=== PATIENT | female | born 1970 | race Caucasian/White ===

== ENCOUNTER 2016-07-26 13:01 | Emergency (ER) | payer OTHER ==
[2016-07-26 13:06] VITALS: BP 102/79; BMI 24.7
--- NOTE | 2016-07-26 13:37 | DR.GENAD ---
HPI - PCP Primary Care Physician: kristina - Complaint/Symptoms Chief Complaint:: patient has had diverticulits in the past, and she is hurting like this again. she also has addisons dx and she dont want to go into crisis. - Source History Provided: Patient - Mode of Arrival Mode of Arrival: Ambulatory - Timing Onset of Chief Complaint: 07/26/16 PMH - PMH Past Medical History: Yes Past Medical History: Anemia, Depression, PUD, Renal Disease Past Surgical History: Yes Surgical History: Hysterectomy, Tonsillectomy - Family History History of Family Medical Conditions: Yes Family Medical History: Hypertension - Social History Does patient currently use any type of tobacco product: Yes Have you used tobacco products in the last 12 months: Yes Type of Tobacco Use: Cigarettes How many years tobacco product used: 7 Does any household member use tobacco: No Alcohol Use: None Do you use any recreational Drugs:: No Lives With: Family Lives Where: Home - infectious screening In the last 2 months have you had wt loss of >10#?: NO Have you had fever, night sweats or hemotysis?: No Have you traveled outside the country in the last 6 months?: No Isolation: Standard ROS - Review of Systems Constitutional: No Symptoms Reported Eyes: No Symptoms Reported ENTM: No Symptoms Reported Respiratoy: No Symptoms Reported Cardiovascular: No Symptoms Reported Gastrointestinal/Abdominal: Abdominal Pain Genitourinary: No Symptoms Reported Neurological: No Symptoms Reported Musculoskeletal: No Symptoms Reported Integumentary: No Symptoms Reported Hematologic/Lymphatic: No Symptoms Reported Endocrine: No Symptoms Reported Psychiatric: No Symptoms Reported All Other Systems: Reviewed and Negative PE - Vital Signs Vitals: Temperature 98.3 F Pulse Rate 100 Respiratory Rate 16 Blood Pressure [Right Arm] 108/59 Blood Pressure [Left Arm] 110/56 Blood Pressure 102/79 O2 Sat by Pulse Oximetry 100 - General General Appearance: Alert - Head Head Exam: Normal Inspection - Eyes Eye exam: Normal Appearance, PERRL, EOMI - ENT ENT Exam: Normal Exam External Ear Exam: Normal External Inspection TM/Canal Exam: Bilateral Normal Nose Exam: Normal Nose Exam Throat Exam: Normal Inspection - Neck Neck Exam: Normal Inspection - Chest Chest Inspection: Normal Inspection - Respiratory Respiratory Exam: Normal Lung Sounds Bilat Respiratory Exam: Bilateral Clear to Auscultation - Cardiovascular Cardiovascular Exam: Regular Rate, Normal Rhythm - Abdominal Exam Abdominal Exam: Normal Inspection, Normal Bowel Sounds, Tenderness Abdominal Tenderness: Epigastrium, Diffuse - Extremities Extremities Exam: Normal Inspection, Full ROM - Back Back Exam: Normal Inspection - Neurologic Neurological Exam: Alert, Oriented X3, CN II-XII Intact - Skin Skin Exam: Warm. negative: Dry Course - Reevaluation 1st: Improved ROR - Labs Reviewed Result Diagrams: 07/26/16 13:31 07/26/16 13:31 Laboratory: WBC 14.8 X10^3/uL (3.6-10.0) H 07/26/16 13:31 RBC 5.23 X10^6/uL (3.5-5.4) 07/26/16 13:31 Hgb 15.7 g/dL (12.0-16.0) 07/26/16 13:31 Hct 46.0 % (36.0-47.0) 07/26/16 13:31 MCV 87.8 fL (80.0-100.0) 07/26/16 13:31 MCH 30.0 pg (27.0-34.0) 07/26/16 13:31 MCHC 34.2 g/dL (33.0-35.0) 07/26/16 13:31 RDW 13.7 % (11.6-16.5) 07/26/16 13:31 Plt Count 236 X10^3/uL (150.0-450.0) 07/26/16 13:31 MPV 9.7 fL (7.4-11.0) 07/26/16 13:31 Neut % 72.8 % (42.0-75.0) 07/26/16 13:31 Lymph % 20.9 % (21.0-51.0) L 07/26/16 13:31 Pepin % 3.8 % (0.0-13.0) 07/26/16 13:31 Eos % 1.7 % (0.9-2.9) 07/26/16 13:31 Baso % 0.8 % (0.2-1.0) 07/26/16 13:31 Neut # 10.8 x10^3/uL (2.2-4.8) H 07/26/16 13:31 Lymph # 3.1 X10^3/uL (1.3-2.9) H 07/26/16 13:31 Pepin # 0.6 x10^3/uL (0.3-0.8) 07/26/16 13:31 Eos # 0.2 x10^3/uL (0.0-0.2) 07/26/16 13:31 Baso # 0.1 X10^3/uL (0.0-0.1) 07/26/16 13:31 Absolute Nucleated RBC 0.0 /100WBC 07/26/16 13:31 Sodium 138 mmol/L (136-145) 07/26/16 13:31 Corrected Sodium TNP 07/26/16 13:31 Potassium 3.9 mmol/L (3.5-5.1) 07/26/16 13:31 Chloride 102 mmol/L (98-107) 07/26/16 13:31 Carbon Dioxide 27.9 mmol/L (21-32) 07/26/16 13:31 BUN 5 mg/dL (7-18) L 07/26/16 13:31 Creatinine 0.85 mg/dL (0.55-1.02) 07/26/16 13:31 Est GFR (MDRD) Af Amer > 60 (>60) 07/26/16 13:31 Est GFR (MDRD) Non-Af > 60 (>60) 07/26/16 13:31 Glucose 101 mg/dL (65-99) H 07/26/16 13:31 Calcium 8.7 mg/dL (8.5-10.1) 07/26/16 13:31 Corrected Calcium TNP 07/26/16 13:31 Total Bilirubin 0.30 mg/dL (0.2-1.0) 07/26/16 13:31 AST 19 Units/L (15-37) 07/26/16 13:31 ALT 26 Units/L (12-78) 07/26/16 13:31 Alkaline Phosphatase 110 Units/L (46-116) 07/26/16 13:31 C-Reactive Protein 8.60 mg/L (0-3.0) H 07/26/16 13:31 Total Protein 8.1 g/dL (6.4-8.2) 07/26/16 13:31 Albumin 3.5 g/dL (3.4-5.0) 07/26/16 13:31 Globulin 4.6 g/dL (2.5-4.5) H 07/26/16 13:31 Albumin/Globulin Ratio 0.8 Ratio (1.1-2.1) L 07/26/16 13:31 Amylase 32 Units/L (25-115) 07/26/16 13:31 Lipase 99 Units/L (73-393) 07/26/16 13:31 Specimen Type Clean catch urine 07/26/16 14:29 Urine Color Yellow (YELLOW) 07/26/16 14:29 Urine Appearance Clear (CLEAR) 07/26/16 14:29 Urine pH 7.0 (5.0 - 8.0) 07/26/16 14:29 Ur Specific [place] 1.010 (1.000-1.030) 07/26/16 14: Urine Protein Negative (NEGATIVE) 07/26/16 14:29 Urine Glucose (UA) Negative (NEGATIVE) 07/26/16 14:29 Urine Ketones Negative (NEGATIVE) 07/26/16 14:29 Urine Occult Blood 2+ (NEGATIVE) 07/26/16 14:29 Urine Nitrite Negative (NEGATIVE) 07/26/16 14:29 Urine Bilirubin Negative (NEGATIVE) 07/26/16 14:29 Urine Urobilinogen Normal (NORMAL) 07/26/16 14:29 Ur Leukocyte Esterase Negative (NEGATIVE) 07/26/16 14:29 Urine RBC 3-4 /HPF (NEGATIVE) 07/26/16 14:29 Urine WBC 0-1 /HPF (NEGATIVE) 07/26/16 14:29 Ur Squamous Epith Cells Moderate /HPF (NEGATIVE) 07/26/16 14:29 Amorphous Sediment Trace /HPF (NEGATIVE) 07/26/16 14:29 Urine Bacteria Trace /HPF (NEGATIVE) 07/26/16 14:29 Ur Culture Indicated? No/not indicated 07/26/16 14:29 - XRAY XRAY Interpreted by: Radiologist (Findings...The gallbladder is unremarkable in its CT apearance. No significant mesenteric lymphadenopathy or stranding can be observed. No free fluid or free air is seen within the abdomen. The appendix is normal. No bowel wall thickening or bowel dilatation is present. Tehere is sigmoid and idstal left colonic diverticular disease without definite inflammation demonstrated on todsy's examination. The uterus appears to be absent. The urinary bladder is empty. The bony structures are grossly intact. Impression: Sigmoid Diverticulosis) - Diagnosis Discharge Problem: Sigmoid diverticulosis - Discharge Plan Condition: Stable - Follow ups/Referrals Follow ups/Referrals: Mann Cedeño [Primary Care Provider] - 3 days - Instructions
[2016-07-26] MEDS ORDERED: NS 1000 ML 1,000 ML ONE (13:38)
[2016-07-26] MEDS ORDERED: MORPHINE SULFATE INJ 4 MG IVP ONE (13:41)
[2016-07-26 13:48] LABS: ALANINE AMINOTRANSFERASE 26 Units/L (12-78); ALBUMIN 3.5 g/dL (3.4-5.0); ALKALINE PHOSPHATASE 110 Units/L (46-116); AMYLASE 32 Units/L (25-115); ASPARTATE AMINO TRANSFERASE 19 Units/L (15-37); BLOOD UREA NITROGEN 5 mg/dL (7-18); CALCIUM 8.7 mg/dL (8.5-10.1); CARBON DIOXIDE 27.9 mmol/L (21-32); CHLORIDE 102 mmol/L (98-107); CREATININE 0.85 mg/dL (0.55-1.02); GLUCOSE 101 mg/dL (65-99); LIPASE 99 Units/L (73-393); SODIUM 138 mmol/L (136-145); TOTAL PROTEIN 8.1 g/dL (6.4-8.2); eGFR BLACK RACES > 60 (>60); eGFR NON BLACK RACES > 60 (>60)
[2016-07-26] MEDS ORDERED: MORPHINE SULFATE INJ 4 MG ONE (13:48)
[2016-07-26 13:51] LABS: BASOPHILS # (AUTO) 0.1 X10^3/uL (0.0-0.1); BASOPHILS % (AUTO) 0.8 % (0.2-1.0); EOSINOPHILS # (AUTO) 0.2 x10^3/uL (0.0-0.2); EOSINOPHILS % (AUTO) 1.7 % (0.9-2.9); HEMOGLOBIN 15.7 g/dL (12.0-16.0); LYMPHOCYTES # (AUTO) 3.1 X10^3/uL (1.3-2.9); LYMPHOCYTES % (AUTO) 20.9 % (21.0-51.0); MEAN CORPUSCULAR HGB CONC 34.2 g/dL (33.0-35.0); MEAN CORPUSCULAR VOLUME 87.8 fL (80.0-100.0); MEAN PLATELET VOLUME 9.7 fL (7.4-11.0); MONOCYTES # (AUTO) 0.6 x10^3/uL (0.3-0.8); MONOCYTES % (AUTO) 3.8 % (0.0-13.0); NEUTROPHILS # (AUTO) 10.8 x10^3/uL (2.2-4.8); NEUTROPHILS % (AUTO) 72.8 % (42.0-75.0); PLATELET COUNT 236 X10^3/uL (150.0-450.0); RED BLOOD COUNT 5.23 X10^6/uL (3.5-5.4); RED CELL DISTRIBUTION WIDTH 13.7 % (11.6-16.5); WHITE BLOOD COUNT 14.8 X10^3/uL (3.6-10.0)
[2016-07-26] MEDS ORDERED: NS 1000 ML 1,000 ML IV SCH (14:00)
[2016-07-26 14:52] LABS: BILIRUBIN,URINE NEGATIVE (NEGATIVE); BLOOD/HEMOGLOBIN,URINE 2+ (NEGATIVE); GLUCOSE, URINE NEGATIVE (NEGATIVE); KETONES,URINE NEGATIVE (NEGATIVE); LEUKOCYTE ESTERASE ,URINE NEGATIVE (NEGATIVE); NITRITES,URINE NEGATIVE (NEGATIVE); PROTEIN,URINE NEGATIVE (NEGATIVE); UROBILINOGEN,URINE NORMAL (NORMAL)
[2016-07-26 15:00] LABS: AMORPHOUS SEDIMENT,UR TRACE /HPF (NEGATIVE); APPEARANCE,URINE CLEAR (CLEAR); BACTERIA,URINE TRACE /HPF (NEGATIVE); COLOR,URINE YELLOW (YELLOW); SQUAMOUS EPITHELIAL CELL,UR MODERATE /HPF (NEGATIVE)
[2016-07-26] MEDS ORDERED: NS 100 ML IV 100 ML IV ONE (16:41)
--- NOTE | 2016-07-26 17:29 | CT ---
HISTORY: Abdominal pain Study: CT abdomen and pelvis with IV and oral contrast Comparison: December 03, 2014 Technique: Multiple axial images of the abdomen and pelvis were obtained from the lung bases to the pubic symph ysis with the administration of IV contrast. Sagittal and coronal reformations were provided. Findings: The visualized portions of the lung bases are unremarkable. The liver, spleen, pancreas, kidneys, a nd adrenal glands are unremarkable in their CT appearance. The gallbladder is unremarkable in its CT appearance. No significant mesenteric lymphadenopathy or stranding can be observed. No free fluid or free air is seen within the abdomen. The appendix is normal. No bowel wall thickening or bowel dilatation is present. There is sigmoid and distal left colonic diverticular disease without defini te inflammation demonstrated on today's examination.. The uterus appears to be absent. The urinary b ladder is empty. The bony structures are grossly intact. IMPRESSION: 1. Sigmoid diverticulosis Reported By:
== END 2016-07-26 17:59 | disposition home or self-care (01) ==
LOC: ER 13:01
DX: K57.30 Diverticulosis of large intestine without perforation or abscess without bleeding (principal)
CPT/HCPCS: 36415; 74177; 80053; 81001; 82150; 83690; 85025; 86140; 96365; 96367; 96374; 99283; A4222; J2270

== ENCOUNTER 2016-08-04 08:38 | Day surgery (SDC) | payer OTHER ==
[2016-08-04] MEDS ORDERED: LR 1000 ML IV 1,000 ML IV ONE (08:46)
[2016-08-04] MEDS ORDERED: NS 50 ML IV + SPIKE MINIBAG* 100 ML IV ONE (08:47)
[2016-08-04] MEDS: ANCEF VIAL 1 GM ONE ×2 (09:43→11:15)
[2016-08-04] MEDS ORDERED: NS IRRIGATION 1000 ML 1,000 ML IR ONE (09:44)
[2016-08-04] MEDS ORDERED: XYLOCAINE 1% and EPINEPHRINE 1:100,000 ONE (10:43)
[2016-08-04] MEDS ORDERED: MARCAINE 0.25% INJ ONE (10:43)
[2016-08-04] MEDS ORDERED: FENTANYL INJ 100 mcg ONE (11:24)
[2016-08-04 13:08] VITALS: BP 98/63
[2016-08-04] MEDS ORDERED: VERSED ONE (15:29)
[2016-08-04] MEDS ORDERED: DIPRIVAN VIAL ONE (15:29)
[2016-08-04] MEDS ORDERED: SOLU CORTEF ONE (15:29)
== END 2016-08-04 12:50 | disposition home or self-care (01) | DRG 572 ==
LOC: SURG1 08:38
PROVIDERS: ATTEND Student in an Organized Health Care Education/Training Program
PROC: 0JB70ZZ Excision of Back Subcutaneous Tissue and Fascia, Open Approach (ICD-10-PCS; principal; 2016-08-04 08:30)
DX: D17.1 Benign lipomatous neoplasm of skin and subcutaneous tissue of trunk (principal)
CPT/HCPCS: A4222; S0020; J0690; J1720; J2001; J2250; J3010; J3490; J7120

== ENCOUNTER → 2017-03-30 | Outpatient (CLI) | payer OTHER ==
--- NOTE | 2017-03-31 09:06 | MRI ---
HISTORY: NECK PAIN AND CERVICAL DISC DISORDER. EXAM: NON CONTRAST MRI EXAM OF THE C-SPINE. TECHNIQUE: Multisequence and multiplanar T1 and T2 weighted sequences of the C-spine were obtained wi thout the administration of IV paramagnetic contrast at 1.5 Hanny. COMPARISON: Cervical spine MRI exam dated 11/25/2015. FINDINGS: There is straightening/reversal of the normal cervical lordosis observed which can be seen with chron ic pain or muscle spasm. There is no evidence for acute fracture or compression deformity. There is u ncomplicated cervical spine fixation hardware seen in place from C4 through C7 with associated metall ic susceptibility artifact at these levels. No pathologic bone marrow edema or subluxation is seen. T here are residual posterior disc osteophyte complexes/protrusions at C3-4 and C4-5 which combine with postsurgical changes to create anterior indentation on the thecal sac and some mass effect on the an terior cord, resulting in mild central spinal canal narrowing without evidence for neural impingement or cord myelomalacia. No abnormal spinal cord signal is seen. There is no evidence for cord syrinx t here is no evidence for a Chiari malformation. No other cervical spine abnormalities are observed. No abnormal ligamentous signal is seen. There is no evidence for discitis or aggressive bone marrow les ion on this examination, either. IMPRESSION: Uncomplicated cervical spine fixation hardware seen in place from C4 through C7 with associated metal lic susceptibility artifact at these levels. No pathologic bone marrow edema or subluxation is seen. No evidence for discitis or an acute bony injury/acute fracture. Broad-based residual posterior disc osteophyte complexes/protrusions at C3-4 and C4-5 which combine w ith postsurgical changes to create anterior indentation on the thecal sac and some mass effect on the anterior cord, resulting in mild central spinal canal narrowing without evidence for neural impingem ent or spinal cord edema or cord myelomalacia. Reported By:
--- NOTE | 2017-03-31 16:49 | MRI ---
MRI SPINE LUMBAR WITHOUT CONTRAST CLINICAL HISTORY: 46-year-old female with chronic low back pain radiating into the legs. COMPARISON: MR lumbar spine 11/25/2015. Technique: Multiplanar, multisequence MRI images of the lumbar spine were obtained without the admin istration of contrast. FINDINGS: The most caudad, fully-formed intervertebral disc will be labeled L5-S1 for the purpose of this dictation, and in keeping with prior imaging and dictation. There is normal lumbar lordosis. Ali gnment is maintained. There is preservation of vertebral body and disc space height. Subtle type 2 en dplate changes anteriorly L1-L5 with the remaining marrow signal unremarkable. Mild loss of disc sign al L2-L5. Cord signal is normal. The conus medullaris is normal in signal characteristics and morphol ogy and terminates at the L1 level. T11-T12: No central canal or neural foraminal stenosis. T12-L1: Small symmetric disc bulge with mild facet hypertrophy with thickened flavum without central canal or neural foraminal stenosis. L1-L2: Small symmetric disc bulge with mild facet hypertrophy and thickened flavum without central ca nal or neural foraminal stenosis. L2-L3: Moderate symmetric disc bulge with mild facet hypertrophy without central canal or neural fora bennie stenosis. L3-L4: Moderate symmetric disc bulge with moderate facet hypertrophy and thickened flavum without kathryn tral canal or neural foraminal stenosis. L4-L5: Large symmetric disc bulge with severe facet hypertrophy and thickened flavum. There is flatte cathryn of the ventral aspect of the exiting right L4 nerve root with engagement of the ventral dorsal a spects of the transiting L5 nerve roots with contour deformity on the right. L5-S1: Moderate symmetric disc bulge with severe facet hypertrophy without central canal or neural fo raminal stenosis. Paraspinous soft tissues are unremarkable. IMPRESSION: 1. Mild multilevel disc degeneration and spondyloarthropathy most severe at L4-L5. 2. See level by level descriptions above. Reported By:
== END | disposition home or self-care (01) | DRG 552 ==
LOC: RAD 10:44
PROVIDERS: ATTEND Internal Medicine
DX: M50.13 Cervical disc disorder with radiculopathy, cervicothoracic region (principal); M54.5 Low back pain; M51.36 Other intervertebral disc degeneration, lumbar region
CPT/HCPCS: 72141; 72148

== ENCOUNTER → 2017-04-20 | Outpatient (CLI) | payer OTHER ==
--- NOTE | 2017-04-21 17:27 | CT ---
CT PELVIS WITHOUT CONTRAST CLINICAL HISTORY: 46-year-old female with recent CT of the abdomen and pelvis demonstrating diverticu lar disease and left adnexal lesion. With provided history of sacrococcygeal disorder. COMPARISON: CT abdomen and pelvis 07/26/2016. TECHNIQUE: Multiple contiguous computed tomographic axial images of the pelvis were obtained without the use of oral or intravenous contrast in soft tissue and bone windows. Images were reformatted in t he coronal and sagittal planes. FINDINGS: Partially imaged kidneys are unremarkable. There are no nephroureteral stones or perinephric fluid co llections. There is no evidence of hydroureteronephrosis and the ureters run in an unobstructed cours e to a partially distended urinary bladder. Status posthysterectomy. Vaginal cuff and right adnexa are unremarkable. 1.8 x 2.3 x 1.3 cm left adn exal lesion is not significantly changed to slightly smaller from previous given differences in patie nt positioning and slice selection. Multiple pelvic phleboliths. The appendix is normal in appearance. The bowel is without obstruction or inflammation and there is no free fluid or free air within the peritoneal cavity. Significant sigmoid diverticulosis without CT evidence of diverticulitis. There are no pathologically enlarged lymph nodes in the abdomen or pelvi s. The arteriovascular structures are within normal limits for a study without contrast. Soft tissues are normal. The osseous structures are intact without fracture or malalignment. Imaged lumbar spine, sacrum and c occyx are unremarkable and normal in morphologic appearance. Imaged bony pelvis is unremarkable. IMPRESSION: 1. Left adnexal lesion as described not significantly changed from prior. Recommend complete evaluati on utilizing ultrasound and consultation with [facility]. 2. Sigmoid diverticulosis without CT evidence of diverticulitis. 3. Imaged bony pelvis, sacrum, coccyx and lumbar spine are unremarkable. Reported By:
--- NOTE | 2017-04-22 09:20 | CT ---
HISTORY: Neck pain. Study: CT cervical spine without contrast Comparison: MRI cervical spine dated March 30, 2017. Technique: Multiple axial images of the cervical spine were obtained from the skull base to the thora cic inlet without administration of IV contrast. Sagittal and coronal reformats were performed and r eviewed. Dose reduction techniques including Automated Exposure Control (AEC) and adjustment of mA an d kV were utilized. Findings: Patient is status post anterior cervical fusion at C4 through C7 with associated disc spacers. Persis tent straightening of the normal cervical lordosis. No acute fracture or listhesis. Remaining vertebr al body heights and disc spaces are maintained. No significant neural foraminal narrowing or spinal c anal stenosis. The prevertebral soft tissues and lung apices appear normal. IMPRESSION: No acute cervical pathology. Reported By:
== END ==
LOC: RAD 14:04
PROVIDERS: ATTEND Neurological Surgery
DX: M47.892 Other spondylosis, cervical region (principal); M53.3 Sacrococcygeal disorders, not elsewhere classified
CPT/HCPCS: 72125; 72192